=== PATIENT | male | born 1970 | race Caucasian/White ===

== ENCOUNTER 2016-10-13 08:23 | Emergency (ER) | payer OTHER ==
[2016-10-13] MEDS ORDERED: SODIUM CHLORIDE FLUSH 0.9% 10 ML SYRINGE IVP ONE ×2 (08:48→14:51)
[2016-10-13] MEDS: SODIUM CHLORIDE 0.9% 1,000 ML IV ONE (09:15)
[2016-10-13 09:33] LABS: BASOPHILS % (AUTO) 0.7 %; EOSINOPHILS # (AUTO) 0.1 10^3/uL (0.0-0.7); EOSINOPHILS % (AUTO) 1.8 %; HGB - HEMOGLOBIN 15.4 g/dL (14.0-18.0); LYMPHOCYTES # (AUTO) 0.4 10^3/uL (1.5-3.5); LYMPHOCYTES % (AUTO) 12.4 %; MEAN CORPUSCULAR HEMOGLOBIN 34.3 pg (27.0-31.0); MEAN CORPUSCULAR VOLUME 98.1 fL (80.0-94.0); MEAN PLATELET VOLUME 8.4 fL (7.4-11.4); MONOCYTES # (AUTO) 0.4 10^3/uL (0.0-1.0); MONOCYTES % (AUTO) 11.8 %; NEUTROPHILS # (AUTO) 2.6 10^3/uL (1.5-6.6); NEUTROPHILS % (AUTO) 73.3 %; NUCLEATED RED BLOOD CELLS AUTO 0.1 /100WBC; RED BLOOD COUNT 4.48 10^6/uL (4.70-6.10); RED CELL DISTRIBUTION WIDTH 12.6 % (12.0-15.0); UNCORRECTED WHITE BLOOD COUNT 3.5 x10^3/uL; WHITE BLOOD COUNT 3.5 x10^3/uL (4.8-10.8)
[2016-10-13] MEDS ORDERED: ONDANSETRON 4 MG/2 ML VIAL ONE ×2 (09:33→14:01)
[2016-10-13] MEDS: ONDANSETRON 4 MG/2 ML VIAL IVP STA ×2 (09:33→14:04)
[2016-10-13 09:46] LABS: ALBUMIN/GLOBULIN RATIO 1.1 (1.0-2.2); BILIRUBIN,TOTAL 3.3 mg/dL (0.2-1.0); CALCIUM 9.2 mg/dL (8.5-10.3); CREATININE 0.6 mg/dL (0.6-1.2); POTASSIUM 3.8 mmol/L (3.5-5.0); TOTAL PROTEIN 7.9 g/dL (6.7-8.2)
--- NOTE | 2016-10-13 09:52 | XRAY Preliminary Report ---
Exam: XR Abdomen Acute IMPRESSION: Negative chest. Nonspecific bowel gas pattern. Calcification left pelvis, question phlebo lith. [facility] SITE ID: [id number]
--- NOTE | 2016-10-13 09:54 | XRAY Report ---
EXAM: ABDOMINAL SERIES AND PA CHEST EXAM DATE: 10/13/2016 09:21 AM. CLINICAL HISTORY: Nausea and vomiting. COMPARISON: None. TECHNIQUE: 2 views abdomen and 1 view chest. FINDINGS: CHEST: Lungs/Pleura: No focal opacities. No effusion or pneumothorax. Mediastinum: Within exam limitations, cardiomediastinal contour is normal. ABDOMEN: Bowel Gas Pattern: Within normal limits. No dilated loops or abnormal fluid levels. Free Air: None. Other: 7 mm calcification left side of the pelvis may represent a phlebolith. In the appropriate clin ical setting of distal ureteral calculus is not excluded. Deformity right obturator ring, question pr ior trauma IMPRESSION: Negative chest. Nonspecific bowel gas pattern. Calcification left pelvis, question phlebo lith. [facility] Referring Provider Line: [phone] SITE ID: [id number]
[2016-10-13] MEDS: FOLIC ACID INJ 1 MG, THIAMINE INJ 100 MG, MAGNESIUM SULFATE 2 GM, MULTIVITAMIN 10 ML in... IV STA ×5 (10:00)
[2016-10-13] MEDS ORDERED: LORazepam 2 MG/ML SYRINGE ONE ×3 (10:00→14:50)
[2016-10-13] MEDS ORDERED: PANTOPRAZOLE 40 MG VIAL ONE (10:01)
[2016-10-13] MEDS: LORazepam 2 MG/ML SYRINGE IVP STA ×3 (10:02→14:50)
[2016-10-13] MEDS: PANTOPRAZOLE 40 MG VIAL IV STA (10:02)
[2016-10-13 12:01] LABS: BILIRUBIN,URINE NEGATIVE (NEGATIVE); UA w/ MICROSCOPIC CHARGE YES
[2016-10-13 12:04] LABS: UR CULTURE IF IND NOT INDICATED; WBC,URINE 0-3 /HPF (0-3)
--- NOTE | 2016-10-13 12:16 | ED Physician Documentation ---
History of Present Illness - Stated complaint Stated Complaint: ABD PX - Chief complaint Chief Complaint: General - Additonal information Additional information: Patient is a 45-year-old male who family says he drinks moderately to very heavily who presents with a complaint of recurrent nausea and vomiting over the past couple of days. He normally drinks 10-15 beers a day. He lives in [place] but is out here in our area for the summer months. He says he has been unable to hold any liquids down for the past couple days. His main complaints nausea vomiting and he really has no complaints of abdominal pain. There is no constipation diarrhea or lower urinary symptoms. He does appear very shaky on physical examination here. His says that sometimes he can go day or 2 without drinking but he does get shaky. Review of systems: For pertinent positive and negatives in the review of systems please see the history of present illness, otherwise all other systems have been reviewed and are negative. Dragon disclaimer: Parts of this medical record were created using voice recognition technology. Because of the inherent limitations of this system, occasional same sounding word substitutions do occur and persist despite proofreading. Please read the document for context. Review of Systems GI: reports: Nausea, Vomiting. denies: Abdominal Pain, Abdominal Swelling, Constipation, Diarrhea, Hematemesis, Bloody / black stool : denies: Dysuria PD PAST MEDICAL HISTORY - Past Medical History Past Medical History: Yes Cardiovascular: Hypertension - Past Surgical History Past Surgical History: Yes - Present Medications Home Medications: Ambulatory Orders Medication Instructions Recorded Confirmed Atenolol 50 mg PO DAILY 10/13/16 10/13/16 Lorazepam [Ativan] 1 mg PO Q6HR PRN #24 tablet 10/13/16 Ondansetron Odt [Zofran] 4 mg TL Q6H PRN #14 tablet 10/13/16 raNITIdine [Zantac] 150 mg PO DAILY #28 tablet 10/13/16 - Allergies Allergies/Adverse Reactions: Allergies Allergy/AdvReac Type Severity Reaction Status Date / Time No Known Drug Allergies Allergy Verified 10/13/16 08:36 - Social History Does the pt smoke?: No Smoking Status: Never smoker Does the pt drink ETOH?: Yes Does the pt have substance abuse?: No - Immunizations Immunizations are current?: Yes PD ED PE NORMAL - General General: Alert and oriented X 3, No acute distress, Well developed/nourished, Other (Tremulous Arturo complected male who looks like a heavy drinker) - HEENT HEENT: PERRL, EOMI - Neck Neck: No bony TTP, No JVD, No bruit - Cardiac Cardiac: RRR, No murmur, No gallop, No rub - Respiratory Respiratory: No respiratory distress, Clear bilaterally - Abdomen Abdomen: Normal bowel sounds, Non tender, Non distended - Derm Derm: Normal color, Warm and dry - Extremities Extremities: No deformity, No tenderness to palpate Results - Vitals Vitals: Vital Signs - 24 hr 10/13/16 10/13/16 10/13/16 08:33 10:54 13:30 Temperature 36.9 C Heart Rate 91 60 88 Respiratory 18 16 16 Rate Blood Pressure 159/96 H 131/76 H 152/94 H O2 Saturation 99 98 Oxygen O2 Source Room air - Labs Labs: Laboratory Tests 10/13/16 10/13/16 10/13/16 09:20 09:20 09:20 WBC 3.5 L RBC 4.48 L Hgb 15.4 Hct 44.0 MCV 98.1 H MCH 34.3 H MCHC 35.0 RDW 12.6 Plt Count 51 L MPV 8.4 Neut # 2.6 Lymph # 0.4 L Twiggs # 0.4 Eos # 0.1 Baso # 0.0 Absolute Nucleated RBC 0.00 Nucleated RBCs 0.1 Sodium 137 Potassium 3.8 Chloride 100 L Carbon Dioxide 26 Anion Gap 11.0 BUN 11 Creatinine 0.6 Estimated GFR (MDRD) 147 Glucose 114 H Calcium 9.2 Magnesium 1.9 Total Bilirubin 3.3 H AST 87 H ALT 53 Alkaline Phosphatase 75 Total Protein 7.9 Albumin 4.1 Globulin 3.8 Albumin/Globulin Ratio 1.1 Lipase 38 Urine Color Urine Clarity Urine pH Ur Specific Agar Urine Protein Urine Glucose (UA) Urine Ketones Urine Occult Blood Urine Nitrite Urine Bilirubin Urine Urobilinogen Ur Leukocyte Esterase Urine RBC Urine WBC Ur Squamous Epith Cells Amorphous Sediment Urine Bacteria Ur Microscopic Review Urine Culture Comments 10/13/16 11:47 WBC RBC Hgb Hct MCV MCH MCHC RDW Plt Count MPV Neut # Lymph # Twiggs # Eos # Baso # Absolute Nucleated RBC Nucleated RBCs Sodium Potassium Chloride Carbon Dioxide Anion Gap BUN Creatinine Estimated GFR (MDRD) Glucose Calcium Magnesium Total Bilirubin AST ALT Alkaline Phosphatase Total Protein Albumin Globulin Albumin/Globulin Ratio Lipase Urine Color ORANGE Urine Clarity CLOUDY Urine pH 8.0 H Ur Specific Agar 1.020 Urine Protein TRACE Urine Glucose (UA) NEGATIVE Urine Ketones 40 H Urine Occult Blood NEGATIVE Urine Nitrite NEGATIVE Urine Bilirubin NEGATIVE Urine Urobilinogen 4 H Ur Leukocyte Esterase NEGATIVE Urine RBC 0-5 Urine WBC 0-3 Ur Squamous Epith Cells RARE Squamous Amorphous Sediment Marked Urine Bacteria Rare Ur Microscopic Review INDICATED Urine Culture Comments NOT INDICATED PD MEDICAL DECISION MAKING - ED course Complexity details: reviewed old records, reviewed results, re-evaluated patient , considered differential, d/w patient, d/w family ED course: Very nice 45-year-old man for the most part is very healthy. He does take atenolol for hypertension. He presents with a complaint of nausea and vomiting for the past couple days and is unable to eat or drink anything. Every time he drinks he vomits very soon thereafter. He does not really have any abdominal pain is been no fever or diarrhea on examination he is tremulous and flushed clinic consistent with a heavy alcohol user type look. The patient's did confide to me that he is a moderately heavy drinker of beer approximately 15 a day. Patient is given IV fluids magnesium thiamine multi-vitamin and several doses of Ativan here with these interventions he looks and feels better. Is also given antacid intravenously. At this point in time he is doing much better had a talk with him about his alcohol consumption. I believe it is becoming a problem with him. At this point in time he feels much better demonstrated that he is able to drink and tolerate fluids. He will be discharged home at this time. I will supply him with antacid, nausea medications and Ativan. Disposition to home Clinical impression: 1. Acute alcoholic gastritis with nausea and vomiting 2. Departure - Departure Disposition: , Self Care Clinical Impression: Gastritis Condition: Good Instructions: ED PUD Vs Gastritis Prescriptions: Lorazepam [Ativan] 1 mg PO Q6HR PRN #24 tablet PRN Reason: Agitation raNITIdine [Zantac] 150 mg PO DAILY #28 tablet Ondansetron Odt [Zofran] 4 mg TL Q6H PRN #14 tablet PRN Reason: Nausea / Vomiting
[2016-10-13] MEDS: TETANUS/DIPHTHERIA/PERTUSSIS 0.5 ML SYRINGE IM ONE (13:24)
[2016-10-13] MEDS ORDERED: TETANUS/DIPHTHERIA/PERTUSSIS 0.5 ML SYRINGE IM ONE (13:26)
[2016-10-13 14:56] VITALS: BP 154/95
== END 2016-10-13 14:58 | disposition home or self-care (01) ==
LOC: ED 08:23
DX: K29.20 Alcoholic gastritis without bleeding (principal); R11.2 Nausea with vomiting, unspecified; I10 Essential (primary) hypertension; Z23 Encounter for immunization
CPT/HCPCS: 36415; 74022; 80053; 81001; 83690; 83735; 85025; 90471; 90715; 96374; 96375; 96376; 99284; J2060; J3411; 81003; 87086

== ENCOUNTER 2018-12-23 15:46 | Outpatient (CLI) | payer SELFPAY | END 2018-12-23 15:47 | disposition EMS.NT | LOC: EMS 15:46 | PROVIDERS: ATTEND Surgery | DX: T21.20XA Burn of second degree of trunk, unspecified site, initial encounter (principal); T24.292A Burn of second degree of multiple sites of left lower limb, except ankle and foot, initial encounter; T24.291A Burn of second degree of multiple sites of right lower limb, except ankle and foot, initial encounter; T23.292A Burn of second degree of multiple sites of left wrist and hand, initial encounter; T23.291A Burn of second degree of multiple sites of right wrist and hand, initial encounter; W40.1XXA Explosion of explosive gases, initial encounter; Y92.009 Unspecified place in unspecified non-institutional (private) residence as the place of occurrence of the external cause ==